=== PATIENT | female | born 1970 | race Caucasian/White ===

== ENCOUNTER 2019-10-11 02:37 | Inpatient (IN) | payer BC ==
[~2019-10-11] VITALS: Ht 152.4 cm; Wt 83.9 kg
[2019-10-11 02:44] VITALS: Ht 152.4 cm; Wt 83.9 kg
[2019-10-11 04:10] LABS: BASOPHIL % 0.4 % (0-2); PLATELET COUNT 211 x10^3mcL (130-400); RED CELL DISTRIBUTION WIDTH 12.5 % (11.5-14.5)
[2019-10-11 04:16] LABS: CALCIUM 8.6 mg/dL (8.5-10.1); CARBON DIOXIDE 23.6 mmol/L (21-32); CHLORIDE SERUM 107 mmol/L (98-107); CREATININE SERUM 0.8 mg/dL (0.6-1.0); GFR1 > 60 mL/min; GLUCOSE SERUM 94 mg/dL (74-106); POTASSIUM SERUM 3.7 mmol/L (3.5-5.1); SODIUM SERUM 142 mmol/L (136-145)
[2019-10-11 04:17] LABS: FREE T4 0.74 ng/dL (0.76-1.46); FREE THYROXINE INDEX 1.2 ug/dL (1.4-4.5); T4(THYROXINE) 4.1 ug/dL (4.7-13.3)
[2019-10-11 04:21] LABS: ALBUMIN 3.5 g/dL (3.4-5.0); ALT/SGPT 83 U/L (14-59); AST/SGOT 35 U/L (15-37); BILIRUBIN TOTAL 0.77 mg/dL (0.20-1.00); TOTAL PROTEIN, SERUM 6.9 g/dL (6.4-8.2)
[2019-10-11 04:22] LABS: ALKALINE PHOSPHATASE 101 U/L (46-116); LIPASE 172 IU/L (73-393)
[2019-10-11 04:44] LABS: T3 TOTAL 1.1 ng/mL
[2019-10-11] MEDS ORDERED: ARMOUR THYROID90 MG PO (05:51)
[2019-10-11 06:39] VITALS: BP 126/81
[2019-10-11 06:44] LABS: CHOLESTEROL/HDL RATIO 4.6; MAGNESIUM 1.9 mg/dL (1.8-2.4); PHOSPHOROUS 4.6 mg/dL (2.5-4.9)
[2019-10-11 07:47] VITALS: BP 124/79
[2019-10-11 09:40] LABS: BASOPHIL % 0.6 % (0-2); PLATELET COUNT 193 x10^3mcL (130-400); RED CELL DISTRIBUTION WIDTH 12.6 % (11.5-14.5)
[2019-10-11 10:15] LABS: CALCIUM 8.8 mg/dL (8.5-10.1); CARBON DIOXIDE 24.6 mmol/L (21-32); CHLORIDE SERUM 106 mmol/L (98-107); CREATININE SERUM 0.7 mg/dL (0.6-1.0); GFR1 > 60 mL/min; GLUCOSE SERUM 90 mg/dL (74-106); MAGNESIUM 1.8 mg/dL (1.8-2.4); PHOSPHOROUS 3.8 mg/dL (2.5-4.9); POTASSIUM SERUM 3.7 mmol/L (3.5-5.1); SODIUM SERUM 141 mmol/L (136-145)
[2019-10-11 16:45] VITALS: BP 111/80
[2019-10-11 19:26] VITALS: BP 121/87
[2019-10-12 05:58] VITALS: BP 104/61
[2019-10-12 06:08] LABS: BASOPHIL % 0.5 % (0-2); PLATELET COUNT 178 x10^3mcL (130-400); RED CELL DISTRIBUTION WIDTH 12.4 % (11.5-14.5)
[2019-10-12 06:29] LABS: CALCIUM 8.4 mg/dL (8.5-10.1); CARBON DIOXIDE 24.2 mmol/L (21-32); CHLORIDE SERUM 106 mmol/L (98-107); CREATININE SERUM 0.8 mg/dL (0.6-1.0); GFR1 > 60 mL/min; GLUCOSE SERUM 96 mg/dL (74-106); POTASSIUM SERUM 3.9 mmol/L (3.5-5.1); SODIUM SERUM 140 mmol/L (136-145)
[2019-10-12 08:34] VITALS: BP 116/74
[2019-10-12] MEDS ORDERED: LIPI10 PO (10:10)
[2019-10-12] MEDS ORDERED: MECLIZINE HYDRO25 M1 PO (10:10)
[2019-10-12] MEDS ORDERED: ZOFRAN4 M3 PO (10:12)
[2019-10-12 10:24] VITALS: BP 116/74
== END 2019-10-12 11:30 | disposition home or self-care (01) | DRG 313 ==
LOC: ED 02:37 → DU 05:48
PROVIDERS: Emergency Medicine; ADMIT Internal Medicine
DX: R07.89 Other chest pain (principal); E03.9 Hypothyroidism, unspecified; R13.10 Dysphagia, unspecified; Z60.2 Problems related to living alone; I35.0 Nonrheumatic aortic (valve) stenosis; E78.5 Hyperlipidemia, unspecified; Z88.8 Allergy status to other drugs, medicaments and biological substances; Z98.51 Tubal ligation status; Z79.899 Other long term (current) drug therapy; Z88.6 Allergy status to analgesic agent
CPT/HCPCS: 83880; 84439; G0378; J8597; Q0092

== ENCOUNTER 2019-10-31 19:56 | Emergency (ER) | payer BC ==
[~2019-10-31] VITALS: Ht 152.4 cm; Wt 82.8 kg
[~2019-10-31 19:56] MED LIST: ARMOUR THYROID90 MG PO; LIPI10 PO; MECLIZINE HYDRO25 M1 PO; ZOFRAN4 M3 PO
[2019-10-31 20:03] VITALS: Ht 152.4 cm; Wt 82.8 kg
[2019-10-31 21:06] VITALS: BP 128/71
== END 2019-10-31 21:06 | disposition home or self-care (01) ==
LOC: ED 19:56
DX: T17.228A Food in pharynx causing other injury, initial encounter (principal); Z88.6 Allergy status to analgesic agent; X58.XXXA Exposure to other specified factors, initial encounter; Y93.89 Activity, other specified; Y99.8 Other external cause status; Y92.89 Other specified places as the place of occurrence of the external cause